=== PATIENT | female | born 1945 | race Asian ===

== ENCOUNTER 2020-12-24 15:31 | Emergency (ER) | payer BC, MEDICAID ==
[~2020-12-24] VITALS: Ht 152.4 cm; Wt 63.6 kg
[2020-12-24 16:52] VITALS: BP 184/73
== END 2020-12-24 16:53 | disposition home or self-care (01) ==
LOC: ER 15:32
DX: I10 Essential (primary) hypertension (principal)
CPT/HCPCS: 99281